=== PATIENT | female | born 1955 | race African-American/Black ===

== ENCOUNTER → 2017-01-27 | Outpatient (CLI) | payer MEDICARE ==
[~2017-01-27] MED LIST: CLINDAMYCIN HC300 MG PO; HYDROCODON-ACE1 EAC7 PO; IBUPROFEN; VOLTAREN75 MG PO
--- NOTE | ~2017-01-27 | MY11 ---
[facility] A Service of [facility] RADIOLOGY TEXT RESULTS PATIENT: INDIO WYMAN LOCATION: [facility] : 57 UNIT #: [id number] AGE: [address]: DEV PETERSON MD SEX: F ORDER DR: [id number] [place] [id number] [facility]. [place], [place] [address] [id number] O MR#: [id number] Acc #: [id number] NAME: INDIO WYMAN : 1955 SEX: F STUDY DATE/TIME: 01/27/2017 9:13 UNIT: [facility] ROOM: STUDY DESCRIPTION: MY Mammogram Screening Dig [place] Attending Physician: Dev Peterson M.D. Referring Physician: Dev Peterson M.D. Ordering Physician: Dev Peterson M.D. Primary Care Physician: Dev Peterson M.D. MEDICAL IMAGING REPORT This report is preliminary unless electronic signature is present EXAM Digital screening mammogram 01/27/2017 HISTORY 61-year-old woman positive family history, cousin age 35. Annual screen. COMPARISON Mammogram from [facility] date 06/09/2015. FINDINGS Digital imaging of each breast was completed utilizing a two-view examination of each breast in craniocaudal and mediolateral-oblique projections. Review and interpretation of digital mammograms include a second review in conjunction with FDA-approved CAD device. There is a normal parenchymal presentation bilaterally consistent with the patient's age. There are no breast masses imaged and no parenchymal asymmetry is visualized. There are no suspicious microcalcifications and I see no focal architectural disturbance. IMPRESSION Negative screening digital mammogram. One-year followup recommended. Patients over the age of 40 are entered into a reminder system with target due date for the next mammogram. A result letter will also be sent to the patient. BIRADS: 1 Negative Dictated by... Pan Cunningham M.D. [facility] A Service of [facility] RADIOLOGY TEXT RESULTS PATIENT: INDIO WYMAN LOCATION: [facility] : 57 UNIT #: [id number] AGE: [address]: DEV PETERSON MD SEX: F ORDER DR: THIS IS AN ELECTRONICALLY VERIFIED REPORT Pan Cunningham M.D. at 01/28/2017 11:51 AM Gif[place] TD: 01/28/2017 09:24 JOB #: [id number] MEDICAL IMAGING REPORT Page 1 of 1 COPY
== END | disposition home or self-care (01) ==
LOC: CWCC 08:45
DX: Z12.31 Encounter for screening mammogram for malignant neoplasm of breast (principal); Z80.3 Family history of malignant neoplasm of breast
CPT/HCPCS: G0202